=== PATIENT | female | born 1985 ===

== ENCOUNTER → 2018-08-20 13:24 | Outpatient (REF) | payer SELFPAY ==
[2018-08-20 13:54] LABS: HEMOLYSIS < 15 (0-50); Iron 198 ug/dL (37-170)
[2018-08-20 14:04] LABS: Percent Iron Saturation 59 % (15-50); Total Iron Binding Capacity 335 ug/dL (265-497); Transferrin 289 mg/dL (206-381)
[2018-08-20 14:12] LABS: Free T3, Triiodothyronine Free 3.57 pg/mL (2.77-5.27); Free T4, Direct Thyroxine 0.97 ng/dL (0.78-2.19)
[2018-08-20 14:31] LABS: Ferritin 25.2 ng/mL (6.27-137)
[2018-08-24 13:55] LABS: Dehydroepiandrosterone Sulfate 200 mcg/dL (23-266)
[2018-08-24 15:54] LABS: Estradiol 183 pg/mL
[2018-08-24 15:56] LABS: Progesterone 23.4 ng/mL; Triiodothyronine T3 Total 78 ng/dL (76-181)
== END ==
LOC: LAB 13:24
PROVIDERS: Visit Provider Naturopath
DX: N94.3 Premenstrual tension syndrome (principal); R53.83 Other fatigue
CPT/HCPCS: 36415; 82627; 82670; 82728; 83540; 83550; 84144; 84439; 84480; 84481